=== PATIENT | male | born 1995 | race Caucasian/White ===

== ENCOUNTER → 2017-11-12 07:37 | Outpatient (CLI) | payer OTHER, SELFPAY ==
--- NOTE | 2017-11-12 07:40 | US_ITS ---
US abdomen limited HISTORY:upper abdominal pain nausea 2 weeks. Diarrhea RUQ pain ORDERING PHYSICIAN: Ashley Bran PATIENT AGE: 21 years Comparison: None no relevant studies for comparison . ProcedureSagittal, transverse and decubitus imaging of the gallbladder was performed. FINDINGS GALLBLADDER - No stones are evident. Trace sludge or gallbladder wall upper normal thickness in some areas. It upper normal echogenicity.. Common duct is normal in diameter. Liver: . No significant findings.. Few minimal fatty changes of liver . Portal vein normal diameter and direction flow Pancreas: .. Not well seen but grossly unremarkable. Right kidney: Unremarkable appearing. No hydronephrosis. IMPRESSION .............. : 1. Gallbladder with no gallstones evident. ... Trace sludge at GB. Upper normal wall thickness in some areas ... If RUQ pain persist or progress, perhaps consider HIDA scan 2. Common duct normal. Liver satisfactory only noting subtle areas of fatty change
== END ==
PROVIDERS: PCP Nurse Practitioner; Visit Provider Nurse Practitioner
DX: R10.84 Generalized abdominal pain (principal)
CPT/HCPCS: 76705

== ENCOUNTER → 2020-04-05 16:27 | Outpatient (CLI) | payer OTHER, SELFPAY | PROVIDERS: PCP Nurse Practitioner; Visit Provider Nurse Practitioner Family | DX: U07.1 COVID-19 (principal) | CPT/HCPCS: U0003 ==

== ENCOUNTER → 2020-04-10 10:52 | Outpatient (CLI) | payer OTHER, SELFPAY ==
[2020-04-10] VITALS (9 sets, daily range): BP systolic 124–136; BP diastolic 57–76; PULSE 56–98; RESP 16–99; TEMP 36.6–36.8; O2SAT 98–100
== END ==
LOC: INF 10:53
PROVIDERS: PCP Nurse Practitioner; Visit Provider Nurse Practitioner
DX: U07.1 COVID-19 (principal)
CPT/HCPCS: 96365

== ENCOUNTER 2020-05-13 22:03 | Emergency (ER) | payer OTHER, SELFPAY ==
[2020-05-13 22:06] VITALS: BP 138/61; PULSE 134; RESP 20; TEMP 39.7; O2SAT 98; BMI 52.2
[2020-05-13 22:16] VITALS: BMI 52.2
--- NOTE | 2020-05-13 22:17 | XR_ITS ---
PROCEDURE: XR CHEST 2V CLINICAL HISTORY: fever COMPARISON: No exams were available for comparison FINDINGS: The cardiomediastinal silhouette and pulmonary vascularity are within normal limits. The lungs are clear without infiltrates, suspicious nodules, or pleural effusions. No acute bony abnormalities. IMPRESSION: No acute findings. Dictated by: Leo Cabrera MD 05/14/2020 05:15 Leo Cabrera MD in [place] 05/14/2020 05:15
[2020-05-13 22:30] LABS: Adenovirus,PCR Not Detected (NotDetected); Bordetella Pertussis Not Detected (NotDetected); Chlamydophila Pneumoniae, PCR Not Detected (NotDetected); Coronavirus 229E Not Detected (NotDetected); Coronavirus NL63 Not Detected (NotDetected); Coronavirus OC43 Not Detected (NotDetected); Coronovirus HKU1,PCR Not Detected (NotDetected); Human Metapneumovirus Not Detected (NotDetected); Influenza A, PCR Not Detected (NotDetected); Influenza AH1, 2009 Not Detected (NotDetected); Influenza AH1, PCR Not Detected (NotDetected); Influenza AH3,PCR Not Detected (NotDetected); Influenza B, PCR Not Detected (NotDetected); Mycoplasma Pneumoniae, PCR Not Detected (NotDetected); Parainfluenza 1, PCR Not Detected (NotDetected); Parainfluenza 2, PCR Not Detected (NotDetected); Parainfluenza 3, PCR Not Detected (NotDetected); Parainfluenza 4, PCR Not Detected (NotDetected); Respiratory Syncytial Virus Not Detected (NotDetected); Rhinovirus/Enterovirus Not Detected (NotDetected)
--- NOTE | 2020-05-13 22:42 | HMH.EDFEV ---
ED Disposition Clinical Impression: Febrile illness, acute Leukocytosis Qualifiers: Leukocytosis type: unspecified Qualified Code(s): D72.829 - Elevated white blood cell count, unspecified Disposition: Home, Self-Care Condition on Discharge: Good Instructions: DI for Fever (Symptom) -- Adult Additional Instructions: fluids and call pcp in am Referrals: Xochitl Christianson APRN [Primary Care Provider] - - Critical Care Critical Care Time: No Attestation: On 05/13/20, the high probability of a clinically significant, sudden or life threatening deterioration of the following system(s) required my full and direct attention, intervention and personal management. The time I documented below is in addition to time spent performing reported procedures but includes the following listed in this critical care notation. Medical Decision Making - Medical Records Medical records reviewed: Yes: I reviewed the patient's medical records. - Steve Inquiry Pt receiving controlled substance: No Vital Signs: 05/13/20 22:06 05/13/20 23:36 Temperature 103.4 F H 99.9 F H Temperature Source Oral Oral Pulse Rate [Right] 134 H 103 H Respiratory Rate 20 18 Blood Pressure [Right Arm] 138/61 141/97 H Blood Pressure Mean [Right Arm] 86 111 02 Sat by Pulse Oximetry 98 Oxygen Delivery Method Room Air - Lab Data Lab results reviewed: Yes: I reviewed the patient's lab results. Lab Results 05/13/20 22:20: Chlamy pneumoniae PCR Not detected, Adenovirus (PCR) Not detected, B. pertussis DNA (PCR) Not detected, Coronavirus OC43 (PCR) Not detected, Coronavirus HKU1 (PCR) Not detected, Coronavirus 229E (PCR) Not detected, SARS-CoV-2 (PCR) Detected A, Coronavirus NL63 (PCR) Not detected, Human Metapneumovir PCR Not detected, Influenza A (H1) PCR Not detected, Influ A (H1N1/09) PCR Not detected, Influenza A (H3) PCR Not detected, Influenza Type A (PCR) Not detected, Influenza Type B (PCR) Not detected, M. pneumoniae (PCR) Not detected, Parainfluenza 1 (PCR) Not detected, Parainfluenza 2 (PCR) Not detected, Parainfluenza 3 (PCR) Not detected, Parainfluenza 4 (PCR) Not detected, RSV (PCR) Not detected, Entero/Rhino (PCR) Not detected 05/13/20 22:20: Group A Strep Rapid Negative 05/13/20 22:35: TSH 5.16 H, Thyroxine (T4) 6.6 05/13/20 22:36: WBC 21.8 H*, RBC 5.03, Hgb 14.4, Hct 42.3, MCV 84.2, MCH 28.6, MCHC 33.9, RDW 13.2, Plt Count 326, MPV 6.9 L, Neut % (Auto) 86.0 H, Lymph % (Auto) 7.3 L, [place] % (Auto) 5.7, Eos % (Auto) 0.7, Baso % (Auto) 0.3, Neut # (Auto) 18.7 H, Lymph # (Auto) 1.6, [place] # (Auto) 1.2 H, Eos # (Auto) 0.2, Baso # (Auto) 0.1, Total Counted 100, Neutrophils % (Manual) 83 H, Lymphocytes % (Manual) 13, Monocytes % (Manual) 2, Eosinophils % (Manual) 1, Basophils % (Manual) 1.0, Platelet Estimate Normal, RBC Morphology Normal 05/13/20 22:36: Sodium 138, Potassium 3.8, Chloride 106, Carbon Dioxide 23, Anion Gap 12.8, BUN 17, Creatinine 1.00, Estimated Creat Clear 127, Estimated GFR 93, Est GFR ( Amer) 113, Glucose 135 H, Calcium 10.4 H, Total Bilirubin 0.5, Direct Bilirubin 0.1, Conjugated Bilirubin 0.0, Indirect Bilirubin 0.4, Unconjugated Bilirubin 0.4, AST 32, ALT 36, Alkaline Phosphatase 50, C-Reactive Protein 19.6 H, Total Protein 8.4 H, Albumin 4.9, Procalcitonin 0.088 05/13/20 22:36: Lactate 1.7 05/13/20 22:36: ESR 16 H 05/14/20 00:00: Urine Color Yellow, Urine Appearance Clear, Urine pH 6.0, Ur Specific [place] >= 1.030, Urine Protein Negative, Urine Glucose (UA) Negative, Urine Ketones Negative, Urine Blood Negative, Urine Nitrate Negative, Urine Bilirubin Negative, Urine Urobilinogen 0.2, Ur Leukocyte Esterase Negative Result diagrams: 05/13/20 22:36 05/13/20 22:36 Orders (Tests/Meds): ED MEDICATIONS Generic Name Dose Route Start Last Admin Trade Name Freq PRN Reason Stop Dose Admin Sodium Chloride 1,000 mls @ 999 mls/hr 05/13/20 22:30 05/13/20 22:24 Sod Chlor 0.9% 1000ml Bag IV 05/13/20 23:30 999 mls/hr .Q1H
[2020-05-13 22:51] LABS: Chloride 106 mmol/L (98-107); Potassium 3.8 mmoL/L (3.5-5.1); Sodium 138 mmol/L (136-145)
[2020-05-13 22:52] LABS: Basophils # 0.1 K/mm3 (0-0.2); Basophils % 0.3 % (0.1-2.0); Eosinophils # 0.2 K/mm3 (0.0-0.4); Eosinophils % 0.7 % (0.1-12.0); Hematocrit 42.3 % (42.0-52.0); Hemoglobin 14.4 g/dL (14.1-18.0); Lymphocytes # 1.6 K/mm3 (0.7-4.5); Lymphocytes % 7.3 % (10-50); Mean Corpuscular HGB Conc 33.9 g/dL (31.8-35.4); Mean Corpuscular Hemoglobin 28.6 pg (27.0-31.2); Mean Corpuscular Volume 84.2 fl (80-94); Mean Platelet Volume 6.9 fl (7.4-10.4); Monocytes # 1.2 K/mm3 (0.1-1.0); Monocytes % 5.7 % (1.7-9.3); Neutrophils # 18.7 K/mm3 (1.8-7.8); Platelet Count 326 K/mm3 (142-424); Red Blood Count 5.03 M/mm3 (4.60-6.20); Red Cell Distribution Width 13.2 % (11.5-17.5); White Blood Count 21.8 K/mm3 (4.8-10.8)
[2020-05-13 22:53] LABS: Alanine Aminotransferase 36 U/L (12-78); Bilirubin,Unconjugated 0.4 mg/dL (0.0-1.1); Blood Urea Nitrogen 17 mg/dl (9-20); Creatinine Clearance Estimated 127 mL/min (50-200); Estimated Glomerular Filt Rate 93 ml/min (>60); GFR (African American) 113 ML/MIN (>60)
[2020-05-13 22:54] LABS: Albumin Level 4.9 g/dl (3.5-5.0); Alkaline Phosphatase 50 U/L (38-126); Anion Gap 12.8 mEq/L (5-15); Aspartate Amino Transferase 32 U/L (17-59); Bilirubin,Direct 0.1 mg/dl (0.0-0.4); Bilirubin,Indirect 0.4 mg/dL (0.0-0.9); Bilirubin,Total 0.5 mg/dl (0.2-1.3); Calcium 10.4 mg/dl (8.4-10.2); Carbon Dioxide 23 mmol/L (22.0-30.0); Glucose 135 mg/dl (74-100); MANUAL DIFFERENTIAL MANUAL DIFFERENTIAL (MANUAL DIFF); Total Protein,Serum 8.4 g/dl (6.3-8.2)
[2020-05-13 22:57] LABS: Lactic Acid 1.7 mmol/L (0.7-2.1)
[2020-05-13 23:00] LABS: C-Reactive Protein 19.6 mg/L (0-4)
[2020-05-13 23:14] LABS: Procalcitonin 0.088 ng/mL (0.0-2.0)
[2020-05-13 23:21] LABS: Strep Scrn Group A (Rapid) Negative (Negative)
[2020-05-13 23:23] LABS: Erythrocyte Sedimentation Rate 16 mm/hr (0-15)
[2020-05-13 23:29] LABS: Eosinophils % 1 % (0-3); Lymphocytes % 13 % (10-50); Monocytes % 2 % (2-9); Neutrophils % 83 % (42-76); Platelet Estimate Normal; RBC Morphology Normal; Total Cells Counted 100
[2020-05-13 23:36] VITALS: BP 141/97; PULSE 103; RESP 18; TEMP 37.7
[2020-05-13 23:37] LABS: T4 (Thyroxine) 6.6 ug/dl (5.53-11.0)
[2020-05-13 23:51] LABS: Thyroid Stimulating Hormone 5.16 uIU/mL (0.465-4.68)
[2020-05-14 00:06] LABS: Microscopic, Urine URINE MICROSCOPIC (MICROSCOPIC)
[2020-05-14 00:11] LABS: Coronavirus 19, PCR Detected (NotDetected)
[2020-05-14 00:23] LABS: Appearance,Urine CLEAR (Clear); Bilirubin,Urine Negative (Negative); Blood, Urine Negative (Negative); Color,Urine YELLOW (Yellow); Glucose,Urine (UA) Negative (Negative); Ketones,Urine Negative (Negative); Leukocyte Esterase,Urine Negative (Negative); Nitrate,Urine Negative (Negative); Protein,Urine Negative (Negative); Specific Gravity, Urine >= 1.030 (1.005-1.030); Urobilinogen,Urine 0.2 EU/dl (0.2)
[2020-05-14 00:29] VITALS: BP 125/74; PULSE 85; RESP 18; TEMP 37.5; O2SAT 98
[2020-05-14 00:33] LABS: Bacteria,Urine 1+ /lpf; Mucus,Urine 1+ /lpf
== END 2020-05-14 00:32 | disposition home or self-care (01) ==
PROVIDERS: Emergency Provider Emergency Medicine; PCP Nurse Practitioner Family
DX: U07.1 COVID-19 (principal); I10 Essential (primary) hypertension; D72.829 Elevated white blood cell count, unspecified
CPT/HCPCS: 71046; 80048; 80076; 81001; 83605; 84145; 84436; 84443; 85007; 85025; 85651; 86140; 87040; 87430; 87581; 87633; 87798; 96365; 96375; 99284

== ENCOUNTER → 2021-03-19 17:45 | Outpatient (CLI) | payer OTHER, SELFPAY | PROVIDERS: Visit Provider Nurse Practitioner | DX: Z20.822 Contact with and (suspected) exposure to COVID-19 (principal) | CPT/HCPCS: C9803; U0003; U0005 ==

== ENCOUNTER 2023-06-24 15:23 | Outpatient (CLI) | payer OTHER, BC, SELFPAY ==
[2023-06-24 15:17] LABS: Microscopic, Urine URINE MICROSCOPIC (MICROSCOPIC)
[2023-06-24 15:58] LABS: Basophils # 0.1 K/mm3 (0-0.2); Basophils % 1.2 % (0.1-2.0); Eosinophils # 0.2 K/mm3 (0.0-0.4); Eosinophils % 3.1 % (0.1-12.0); Hematocrit 44.2 % (42.0-52.0); Hemoglobin 14.4 g/dL (14.1-18.0); Lymphocytes # 3.4 K/mm3 (0.7-4.5); Mean Corpuscular HGB Conc 32.7 g/dL (31.8-35.4); Mean Corpuscular Hemoglobin 29.2 pg (27.0-31.2); Mean Corpuscular Volume 89.4 fl (80-94); Mean Platelet Volume 8.6 fl (7.4-10.4); Monocytes # 0.4 K/mm3 (0.1-1.0); Monocytes % 4.9 % (1.7-9.3); Neutrophils # 3.5 K/mm3 (1.8-7.8); Neutrophils % 45.8 % (37.0-80.0); Platelet Count 285 K/mm3 (142-424); Red Blood Count 4.94 M/mm3 (4.60-6.20); Red Cell Distribution Width 13.1 % (11.5-17.5); White Blood Count 7.5 K/mm3 (4.8-10.8)
[2023-06-24 16:02] LABS: Appearance,Urine CLEAR (Clear); Bilirubin,Urine Negative (Negative); Blood, Urine Negative (Negative); Color,Urine YELLOW (Yellow); Glucose,Urine (UA) Negative (Negative); Ketones,Urine Negative (Negative); Leukocyte Esterase,Urine Negative (Negative); Nitrate,Urine Negative (Negative); Protein,Urine Negative (Negative); Specific Gravity, Urine >= 1.030 (1.005-1.030); Urobilinogen,Urine 0.2 EU/dl (0.2)
[2023-06-24 16:38] LABS: Alanine Aminotransferase 52 U/L (12-78); Albumin Level 4.5 g/dl (3.5-5.0); Albumin/Globulin Ratio 1.6 (1.1-1.8); Alkaline Phosphatase 57 U/L (38-126); Anion Gap 10.2 mEq/L (5-15); Aspartate Amino Transferase 41 U/L (17-59); Bilirubin,Total 0.4 mg/dl (0.2-1.3); Blood Urea Nitrogen 14 mg/dl (9-20); Calcium 9.7 mg/dl (8.4-10.2); Carbon Dioxide 28 mmol/L (22.0-30.0); Chloride 107 mmol/L (98-107); Chol/HDL Ratio 5.7 (1-3.5); Cholesterol 222 mg/dl (140-200); Estimated Glomerular Filt Rate 118 ml/min (>60); GFR (African American) 143 ML/MIN (>60); Globulin 2.8 g/dL (1.3-3.2); Glucose 96 mg/dl (74-100); HDL Cholesterol 39 mg/dl (40-60); Potassium 4.2 mmoL/L (3.5-5.1); Sodium 141 mmol/L (136-145); Total Protein,Serum 7.3 g/dl (6.3-8.2); Triglycerides 201 mg/dl (30-150); VLDL Cholesterol 40 mg/dL (0-40)
[2023-06-24 16:49] LABS: Direct LDL Cholesterol 132.88 mg/dL (100-129)
[2023-06-24 16:59] LABS: 25-OH Vitamin D, Total 13.9 ng/mL (30-100)
[2023-06-24 17:00] LABS: Free T4 (Free Thyroxine) 0.67 ng/dl (0.78-2.19)
[2023-06-24 17:08] LABS: Hemoglobin A1C 6.1 % (4.0-6.0)
[2023-06-24 17:43] LABS: Vitamin B12 346 pg/mL (239-931)
[2023-06-24 18:09] LABS: Squamous Epithelial Cell,Urine Occasional #/hpf (0-5)
[2023-06-26 06:13] LABS: HBsAg Screen Negative (Negative); HCV Ab Non Reactive (Non Reactive); Hep A Ab, IGM Negative (Negative); Hep B Core Ab, IgM Negative (Negative)
[2023-06-26 07:12] LABS: Rapid Plasma Reagin Ab Titer Non Reactive titer (NonRea<1:1)
[2023-06-26 11:17] LABS: HIV Screen 4th Generation wRfx Non Reactive (Non Reactive)
[2023-06-28 20:20] LABS: Neisseria gonorrhoeae, NAA Negative (Negative)
== END 2023-06-24 23:59 | disposition home or self-care (01) ==
LOC: LAB.DROPOF 15:24
PROVIDERS: PCP Nurse Practitioner Family; Visit Provider Nurse Practitioner Family
DX: E03.9 Hypothyroidism, unspecified (principal); I10 Essential (primary) hypertension; E78.5 Hyperlipidemia, unspecified; E66.01 Morbid (severe) obesity due to excess calories; Z68.43 Body mass index [BMI] 50.0-59.9, adult; E55.9 Vitamin D deficiency, unspecified; Z13.1 Encounter for screening for diabetes mellitus; Z11.59 Encounter for screening for other viral diseases; Z11.3 Encounter for screening for infections with a predominantly sexual mode of transmission; Z11.4 Encounter for screening for human immunodeficiency virus [HIV]
CPT/HCPCS: 80053; 80061; 80074; 81001; 82306; 82607; 83036; 84156; 84439; 84443; 85025; 86593; 86703; 87086; 87491; 87591; G0432

== ENCOUNTER 2023-07-02 13:37 | Outpatient (CLI) | payer OTHER, BC, SELFPAY ==
--- NOTE | 2023-07-02 13:37 | US_ITS ---
FINAL REPORT TECHNIQUE: Sonographic images of the thyroid were obtained. CLINICAL HISTORY: Hypothyroidism FINDINGS: THYROID ULTRASOUND The right thyroid gland measures 5.5 x 1.9 x 2.2 cm. It is heterogeneous and mildly enlarged. No dominant mass is seen. The left thyroid gland measures 6.0 x 2.0 x 2.0 cm. It is heterogeneous and mildly enlarged. No dominant mass is seen. IMPRESSION: Heterogeneous and mildly enlarged thyroid with no discrete nodules. Reviewed, Interpreted and Dictated by Robin Duran MD Transcribed by Sari Pace Authenticated and [facility]
== END 2023-07-02 23:59 | disposition home or self-care (01) ==
LOC: RAD 13:37
PROVIDERS: PCP Nurse Practitioner Family; Visit Provider Nurse Practitioner Family
DX: E03.9 Hypothyroidism, unspecified (principal)
CPT/HCPCS: 76536

== ENCOUNTER → 2023-07-26 08:23 | Outpatient (CLI) | payer OTHER, BC, SELFPAY | LOC: SL 08:23 | PROVIDERS: PCP Nurse Practitioner Family; Visit Provider Nurse Practitioner Family | DX: G47.33 Obstructive sleep apnea (adult) (pediatric) (principal); R06.83 Snoring; I10 Essential (primary) hypertension; R73.03 Prediabetes; E66.01 Morbid (severe) obesity due to excess calories; Z68.43 Body mass index [BMI] 50.0-59.9, adult | CPT/HCPCS: 95806 ==

== ENCOUNTER 2023-08-12 14:13 | Outpatient (CLI) | payer OTHER, BC, SELFPAY ==
[2023-08-12 17:51] LABS: Chol/HDL Ratio 4.5 (1-3.5); Cholesterol 171 mg/dl (140-200); HDL Cholesterol 38 mg/dl (40-60); Triglycerides 194 mg/dl (30-150); VLDL Cholesterol 39 mg/dL (0-40)
[2023-08-12 18:02] LABS: Direct LDL Cholesterol 106.23 mg/dL (100-129)
[2023-08-12 18:09] LABS: Free T4 (Free Thyroxine) 1.12 ng/dl (0.78-2.19)
[2023-08-12 18:24] LABS: Thyroid Stimulating Hormone 9.65 uIU/mL (0.465-4.68)
== END 2023-08-12 23:59 | disposition home or self-care (01) ==
LOC: LAB.DROPOF 14:13
PROVIDERS: PCP Nurse Practitioner Family; Visit Provider Nurse Practitioner Family
DX: E03.9 Hypothyroidism, unspecified (principal); E78.5 Hyperlipidemia, unspecified; G47.33 Obstructive sleep apnea (adult) (pediatric)
CPT/HCPCS: 80061; 84439; 84443

== ENCOUNTER 2023-08-24 14:33 | Outpatient (CLI) | payer OTHER, BC, SELFPAY ==
--- NOTE | 2023-08-24 14:36 | XR_ITS ---
FINAL REPORT CLINICAL HISTORY: LT Knee Pain states he hurt his knee yesterday, difficulty to bare weight COMPARISON: None FINDINGS: LEFT KNEE: Three views of the left knee were obtained. There is no acute fracture or dislocation. There is mild degenerative change in the lateral compartment. There is a small joint effusion. Soft tissues are unremarkable. IMPRESSION: Lateral compartment degenerative change and small joint effusion. Reviewed, Interpreted and Dictated by Malik Sorenson III, MD Transcribed by Ara Erazo Authenticated and [facility]
== END 2023-08-24 23:59 | disposition home or self-care (01) ==
LOC: RAD 14:33
PROVIDERS: PCP Nurse Practitioner Family; Visit Provider Orthopaedic Surgery
DX: M25.562 Pain in left knee (principal)
CPT/HCPCS: 73562

== ENCOUNTER 2023-08-27 07:30 | Outpatient (CLI) | payer OTHER, SELFPAY ==
--- NOTE | 2023-08-27 07:30 | MR_ITS ---
FINAL REPORT CLINICAL HISTORY: LT Knee Pain, lateral since wednesday nki COMPARISON: None FINDINGS: Multiplanar MR imaging of the right knee was performed without contrast. The medial meniscus is intact. There are tears of the anterior horn, body, and posterior horn of the lateral meniscus. The anterior and posterior cruciate ligaments are intact. The medial collateral ligament and lateral ligamentous complex are intact. The patellar and quadriceps tendons are intact. There is no evidence of fracture. No focal abnormality is identified of the articular cartilage. A large joint effusion is seen. The musculature is intact. No soft tissue mass or cyst is identified. IMPRESSION: Tears of the anterior horn, body, and posterior horn of the lateral meniscus. Large joint effusion is present. Reviewed, Interpreted and Dictated by Malik Sorenson III, MD Transcribed by Louisa South Authenticated and . [facility]
== END 2023-08-27 23:59 | disposition home or self-care (01) ==
PROVIDERS: PCP Nurse Practitioner Family; Visit Provider Orthopaedic Surgery
DX: M25.562 Pain in left knee (principal); M23.92 Unspecified internal derangement of left knee
CPT/HCPCS: 73721

== ENCOUNTER 2023-09-24 09:51 | Outpatient (CLI) | payer OTHER, SELFPAY ==
[2023-09-24 11:05] LABS: Free T4 (Free Thyroxine) 1.18 ng/dl (0.78-2.19)
[2023-09-24 11:43] LABS: Hemoglobin A1C 5.6 % (4.0-6.0)
== END 2023-09-24 23:59 | disposition home or self-care (01) ==
LOC: LAB.DROPOF 09:52
PROVIDERS: PCP Nurse Practitioner Family; Visit Provider Nurse Practitioner Family
DX: R73.03 Prediabetes (principal); E03.9 Hypothyroidism, unspecified
CPT/HCPCS: 83036; 84439; 84443

== ENCOUNTER 2023-09-27 10:26 | Day surgery (SDC) | payer OTHER, SELFPAY ==
[2023-09-23 12:43] VITALS: BMI 54.3
[2023-09-27] VITALS (14 sets, daily range): BP systolic 102–146; BP diastolic 51–79; PULSE 52–72; RESP 16–24; TEMP 36.2–36.6; O2SAT 97–100
[2023-09-27] MEDS: LACTATED RINGERS 1000ML 1,000 ML 100 ML IV (11:05)
[2023-09-27] MEDS: CLINDAMYCIN PHOSPHATE/D5W 900 MG/50 ML PIGGYBACK 100 MG IV (12:01)
--- NOTE | 2023-09-27 12:20 | P.PNANES_ITS ---
[facility] Disclaimer: The information contained in this section may have been updated after the patient was seen, as this information can be updated by other users. Medical History Suspected sleep apnea CHELSEY (obstructive sleep apnea) Establishing care with new doctor, encounter for Febrile illness, acute Hyperlipidemia Hypertension Hypothyroidism Surgical History Hx of tonsillectomy As a child History of placement of ear tubes H/O knee surgery right, torn meniscus, high school Family History Father Cancer thyroid Thyroid disorder Diabetes Hypertension Mother Thyroid disorder Coronary artery disease Brother Thyroid disorder Leukemia Grandmother Thyroid disorder Cancer Coronary artery disease Heart attack Diabetes COPD (chronic obstructive pulmonary disease) Social History Smoking Status: Never smoker alcohol intake: current alcohol intake frequency: holidays/special occasions only substance use type: denies use current occupational status: employed Travel in the last 8 weeks: None [facility] Anesthesia Checklist Patient Identification Patient Identification: Arm Band Structural Data Admitted From: Home Planned Operative Procedure/s: Left Knee Arthroscopy, Partial Lateral Meniscectomy Consent for Planned Operative Procedure(s) Verified: Yes Verified Documents: Surgical Consent and History and Physical NPO Status Verified Time NPO: 00:00 Additional verifications Anesthesia Reactions: No Hx Blood Transfusions: No Blood Transfusion Reaction: No Airway Assessment Mallampati Score:: Class II C-Spine Mobility Assessed: Yes TMJ Mobility Assessed: Yes Dentition: Good Dentition Neurological Assessment Level of Consciousness: Awake, Alert and Appropriate Anesthesia Plan Anesthesia Risk discussed: Yes Anesthesia Plan: Verified ASA Class: III Anesthesia Type: General
[2023-09-27] MEDS: BUPIVACAINE 0.25% 30ML VIAL 75 MG (12:30)
--- NOTE | 2023-09-27 13:12 | P.OP_ITS ---
Date of procedure: 09/27/23 Pre-op Diagnosis:: Left knee lateral meniscus tear Post-op Diagnosis:: Left knee lateral meniscus tear, macerated Left knee intra-articular loose body Procedure performed:: Left knee arthroscopy with partial lateral meniscectomy Left knee arthroscopy with removal of intra-articular loose body Surgeon:: Mj Camilo DO [employer]BI[employer] TECHNICIAN:: Terry Reeves Anesthesia: GETA Estimated blood loss (mL): 0 Operative findings:: Large macerated tear posterior horn and body lateral meniscus, white zone Operative note:: Patient identified preoperatively. Left knee marked with yes and my initials. Transported operative suite. Placed upon the operating bed general anesthesia was administered and airway secured. Left lower extremity then placed in the leg malagon. Left lower extremity prepped and draped in normal sterile fashion. Once prepped and draped final operative timeout performed to identify proper patient procedure and extremity. Everyone involved the case agreed. There were no counter indications to beginning. He did receive preoperative antibiotics. Marking pen was used to juliano bony landmarks of the knee and standard portal sites. Esmarch was used to exsanguinate the extremity and pneumatic tourniquet was inflated to 300 mmHg. Skin knife was used incise standard anterior lateral portal and blunt with trocar was placed in the patellofemoral joint and exchanged with a camera. I swept directly into the medial joint line where the anterior medial portal was made with the help of an 18-gauge spinal needle. Probe was then placed. Inside the medial joint line the cartilage was intact the meniscus was intact. I then swept into the intercondylar notch where the ACL was seen and intact. Placed the camera into the lateral joint line. Within the lateral joint line there was evidence of intra-articular loose body present. Presumably from the meniscus tear. Probe was then placed there is no full-thickness lesion of the lateral femoral condyle or the lateral tibia. There is a complex macerated tear of the body posterior horn of the lateral meniscus. This was not in a configuration or tear type there would be amendable to repair. Therefore partial lateral meniscectomy was performed back to stable rim. Using combination of straight biter and sucker shaver. Attention was then brought into the patellofemoral joint patella did track midline within the trochlea there is no pathology in the medial lateral gutters. Camera was removed. Joint was drained. Local anesthesia infiltrated the portal sites. Skin closed with nylon stitch. Sterile dressing placed from toe to thigh. Patient waken anesthesia taken recovery stable condition. Condition: stable Disposition: PACU Complications:: None apparent
--- NOTE | 2023-09-27 13:30 | P.PNANES_ITS ---
[facility] Anesthesia Record Part I Anesthesia Record I Intake, IV Amount: 1,000 Hydration: Adequate Estimated blood loss (mL): 40 Urine output (mL): 0 Blood Products used (#): none Blood Pressure: 116/79 SaO2: 99 Pulse Rate: 66 Airway Patency: Patent Respiratory Rate: 24 Temperature: 97.1 F Patient is:: Drowsy and Stable
[2023-09-27] MEDS: MORPHINE 2MG/ML SYRINGE 1 MG IV ×2 (13:35→13:42)
[2023-09-27] MEDS: HYDROMORPHONE 2MG/ML SYRINGE 0.5 MG IV (13:52)
--- NOTE | 2023-09-28 12:32 | EXP.ANES.II ---
[facility] Anesthesia Record Part II Anesthesia Record Part II Discharge Time: 14:00 Destination: Surgical Day Care (OP Surgery) PACU nurse assessment reviewed?: Yes Patient Condition:: Good Anesthesia Complications:: None Swallowing reflex intact?: Yes Airway Patency: Patent Cyanosis?: No Blood Pressure: 113/60 SaO2: 99 Respiratory Rate: 16 Pulse Rate: 58 Temperature: 97.6 F Mental Status: Alert & Oriented Pain level:: 4 Nausea and/or vomitting:: None Intake, IV Amount: 0 Hydration: Adequate
[2023-09-28 12:33] VITALS: BP 113/60; PULSE 58; RESP 16; TEMP 36.4; O2SAT 99
== END 2023-09-27 14:51 | disposition home or self-care (01) ==
PROVIDERS: PCP Nurse Practitioner Family; Visit Provider Orthopaedic Surgery
PROC: (CPT 29870; principal; 2023-09-27 12:00)
DX: S83.272A Complex tear of lateral meniscus, current injury, left knee, initial encounter (principal); M23.42 Loose body in knee, left knee
CPT/HCPCS: 29881; 96374; J1100; J1170; J2250; J2270; J2405; J3010; J7120

== ENCOUNTER 2023-11-01 15:02 | Outpatient (CLI) | payer OTHER, SELFPAY ==
[2023-11-01 14:55] LABS: Free T4 (Free Thyroxine) 1.32 ng/dl (0.78-2.19)
[2023-11-01 15:11] LABS: Thyroid Stimulating Hormone 3.74 uIU/mL (0.465-4.68)
== END 2023-11-01 23:59 | disposition home or self-care (01) ==
LOC: LAB.DROPOF 15:03
PROVIDERS: PCP Nurse Practitioner Family; Visit Provider Nurse Practitioner Family
DX: E03.9 Hypothyroidism, unspecified (principal)
CPT/HCPCS: 84439; 84443

== ENCOUNTER 2024-02-03 13:29 | Outpatient (CLI) | payer OTHER, SELFPAY ==
[2024-02-03 13:44] LABS: Alanine Aminotransferase 27 U/L (12-78); Albumin Level 4.7 g/dl (3.5-5.0); Albumin/Globulin Ratio 1.8 (1.1-1.8); Alkaline Phosphatase 32 U/L (38-126); Anion Gap 14.5 mEq/L (5-15); Aspartate Amino Transferase 30 U/L (17-59); Bilirubin,Total 0.6 mg/dl (0.2-1.3); Blood Urea Nitrogen 21 mg/dl (9-20); Calcium 9.5 mg/dl (8.4-10.2); Carbon Dioxide 25 mmol/L (22.0-30.0); Chloride 104 mmol/L (98-107); Chol/HDL Ratio 3.5 (1-3.5); Cholesterol 135 mg/dl (140-200); Estimated Glomerular Filt Rate 102 ml/min (>60); GFR (African American) 123 ML/MIN (>60); Globulin 2.6 g/dL (1.3-3.2); Glucose 97 mg/dl (74-100); HDL Cholesterol 39 mg/dl (40-60); Potassium 4.5 mmoL/L (3.5-5.1); Sodium 139 mmol/L (136-145); Total Protein,Serum 7.3 g/dl (6.3-8.2); Triglycerides 100 mg/dl (30-150); VLDL Cholesterol 20 mg/dL (0-40)
[2024-02-03 14:00] LABS: 25-OH Vitamin D, Total 50.9 ng/mL (30-100); Free T4 (Free Thyroxine) 1.39 ng/dl (0.78-2.19)
== END 2024-02-03 23:59 | disposition home or self-care (01) ==
LOC: LAB.DROPOF 13:29
PROVIDERS: PCP Nurse Practitioner Family; Visit Provider Nurse Practitioner Family
DX: R73.03 Prediabetes (principal); E55.9 Vitamin D deficiency, unspecified; E03.9 Hypothyroidism, unspecified; E78.5 Hyperlipidemia, unspecified
CPT/HCPCS: 80053; 80061; 82306; 84439; 84443

== ENCOUNTER 2024-08-10 11:26 | Outpatient (CLI) | payer OTHER, SELFPAY ==
[2024-08-10 14:36] LABS: Microscopic, Urine URINE MICROSCOPIC (MICROSCOPIC)
[2024-08-10 15:07] LABS: Basophils # 0.1 K/mm3 (0-0.2); Basophils % 0.9 % (0.1-2.0); Eosinophils # 0.2 Kmm3 (0.0-0.4); Eosinophils % 3.3 % (0.1-12.0); Hematocrit 39.7 % (42.0-52.0); Hemoglobin 13.1 g/dL (14.1-18.0); Immature Granulocytes # 0.02 10^3uL; Immature Granulocytes % 0.3 %; Lymphocytes % 42.1 % (10-50); Mean Corpuscular Hemoglobin 28.7 pg (27.0-31.2); Mean Corpuscular Volume 87.1 fl (80-94); Mean Platelet Volume 10.5 fl (7.4-10.4); Monocytes # 0.5 K/mm3 (0.1-1.0); Monocytes % 6.5 % (1.7-9.3); Neutrophils # 3.3 K/mm3 (1.8-7.8); Neutrophils % 46.9 % (37.0-80.0); Nucleated Red Blood Cells # 0 10^3/uL; Nucleated Red Blood Cells % 0 %; Platelet Count 332 K/mm3 (142-424); Red Blood Count 4.56 M/mm3 (4.60-6.20); Red Cell Distribution Width 12.9 % (11.5-17.5); Red Cell Distribution Width-SD 40.6 fL
[2024-08-10 15:23] LABS: Appearance,Urine CLEAR (Clear); Bilirubin,Urine Negative (Negative); Blood, Urine Negative (Negative); Color,Urine YELLOW (Yellow); Glucose,Urine (UA) Negative (Negative); Ketones,Urine Negative (Negative); Leukocyte Esterase,Urine Negative (Negative); Nitrate,Urine Negative (Negative); Protein,Urine Negative (Negative); Specific Gravity, Urine 1.025 (1.005-1.030); Urobilinogen,Urine 0.2 EU/dl (0.2)
[2024-08-10 15:46] LABS: Alanine Aminotransferase 28 U/L (12-78); Albumin Level 4.9 g/dl (3.5-5.0); Alkaline Phosphatase 33 U/L (38-126); Anion Gap 13.9 mEq/L (5-15); Aspartate Amino Transferase 32 U/L (17-59); Bilirubin,Total 0.6 mg/dl (0.2-1.3); Blood Urea Nitrogen 26 mg/dl (9-20); Calcium 9.8 mg/dl (8.4-10.2); Carbon Dioxide 27 mmol/L (22.0-30.0); Chloride 105 mmol/L (98-107); Chol/HDL Ratio 3.2 (1-3.5); Cholesterol 135 mg/dl (140-200); Estimated Glomerular Filt Rate 90 ml/min (>60); GFR (African American) 109 ML/MIN (>60); Globulin 2.5 g/dL (1.3-3.2); Glucose 84 mg/dl (74-100); HDL Cholesterol 42 mg/dl (40-60); Potassium 4.9 mmoL/L (3.5-5.1); Sodium 141 mmol/L (136-145); Total Protein,Serum 7.4 g/dl (6.3-8.2); Triglycerides 91 mg/dl (30-150); VLDL Cholesterol 18 mg/dL (0-40)
[2024-08-10 15:58] LABS: Direct LDL Cholesterol 85.71 mg/dL (100-129); Total Protein,Urine Random < 5.0 mg/dL (0.0-12.0)
[2024-08-10 16:07] LABS: 25-OH Vitamin D, Total 53.8 ng/mL (30-100); Free T4 (Free Thyroxine) 1.25 ng/dl (0.78-2.19)
[2024-08-10 16:18] LABS: Thyroid Stimulating Hormone 4.15 uIU/mL (0.465-4.68)
[2024-08-10 16:36] LABS: Vitamin B12 330 pg/mL (239-931)
[2024-08-10 16:38] LABS: Hemoglobin A1C 5.2 % (4.0-6.0)
[2024-08-10 17:11] LABS: Iron 87 ug/dL (49-181)
[2024-08-10 17:21] LABS: Total Iron Binding Capacity 393 ug/dL (261-462)
[2024-08-10 17:48] LABS: Ferritin 251 ng/ml (17.9-464)
== END 2024-08-10 23:59 | disposition home or self-care (01) ==
LOC: LAB.DROPOF 08-11 13:04
PROVIDERS: PCP Nurse Practitioner Family; Visit Provider Nurse Practitioner Family
DX: E03.9 Hypothyroidism, unspecified (principal); D72.829 Elevated white blood cell count, unspecified; E55.9 Vitamin D deficiency, unspecified; E78.5 Hyperlipidemia, unspecified; G47.33 Obstructive sleep apnea (adult) (pediatric); I10 Essential (primary) hypertension; R73.03 Prediabetes; R41.3 Other amnesia; R53.83 Other fatigue
CPT/HCPCS: 80053; 80061; 81001; 82306; 82607; 82728; 83036; 83540; 83550; 84156; 84439; 84443; 85025; 87086

== ENCOUNTER 2025-02-05 08:54 | Outpatient (CLI) | payer OTHER, SELFPAY ==
[2025-02-05 15:00] LABS: Hemoglobin A1C 5.7 % (4.0-6.0)
[2025-02-05 15:15] LABS: Anion Gap 12.4 mEq/L (5-15); Blood Urea Nitrogen 25 mg/dl (9-20); Calcium 10.0 mg/dl (8.4-10.2); Carbon Dioxide 24 mmol/L (22.0-30.0); Chloride 103 mmol/L (98-107); Cholesterol 152 mg/dl (140-200); Creatinine,Serum 0.90 mg/dl (0.66-1.25); Estimated Glomerular Filt Rate 101 ml/min (>60); GFR (African American) 122 ML/MIN (>60); Glucose 86 mg/dl (74-100); HDL Cholesterol 50 mg/dl (40-60); Potassium 4.4 mmoL/L (3.5-5.1); Sodium 135 mmol/L (136-145); Triglycerides 104 mg/dl (30-150)
[2025-02-05 15:33] LABS: Free T4 (Free Thyroxine) 1.41 ng/dl (0.78-2.19)
[2025-02-05 15:46] LABS: Thyroid Stimulating Hormone 4.11 uIU/mL (0.465-4.68)
== END 2025-02-05 23:59 ==
LOC: LAB.DROPOF 02-06 09:55
PROVIDERS: PCP Nurse Practitioner Family; Visit Provider Nurse Practitioner Family
DX: G47.33 Obstructive sleep apnea (adult) (pediatric) (principal); E66.01 Morbid (severe) obesity due to excess calories; Z68.43 Body mass index [BMI] 50.0-59.9, adult; E03.9 Hypothyroidism, unspecified; I10 Essential (primary) hypertension; E78.5 Hyperlipidemia, unspecified; E11.9 Type 2 diabetes mellitus without complications
CPT/HCPCS: 80048; 80061; 83036; 84439; 84443